=== PATIENT | male | born 2000 | race African-American/Black ===

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

== ENCOUNTER 2018-04-12 18:21 | Emergency (ER) | payer OTHER ==
[2018-04-12 20:47] LABS: INFLUENZA A AMPLIFICATION NEGATIVE (NEGATIVE); INFLUENZA B AMPLIFICATION NEGATIVE (NEGATIVE)
[2018-04-12] MEDS: IBUPROFEN 800 MG TAB PO (21:22)
== END 2018-04-12 21:23 | disposition home or self-care (01) ==
LOC: M ED 18:21
DX: J06.9 Acute upper respiratory infection, unspecified (principal); Z72.0 Tobacco use; Z88.0 Allergy status to penicillin
CPT/HCPCS: 87502

== ENCOUNTER 2018-09-07 05:58 | Emergency (ER) | payer OTHER ==
[~2018-09-07] VITALS: Ht 170.2 cm; Wt 59.0 kg
[~2018-09-07 05:58] MED LIST: BENZ200C70 PO; IBUP-1022 PO; IBUP80TA PO; MUCI600T37 PO; NAPR-885 PO; VENTAER IN
[2018-09-07 06:06] VITALS: BP 136/87
--- NOTE | 2018-09-07 06:38 | ED PDOC ---
Post-Departure Follow-Up THIS PT HAD AN EKG DONE, HE PRESENTED FOR CHEST PAIN. HE WAS NOT SEEN BY A SD OVIDER BEFORE DECIDING TO LEAVE THE DEPARTMENT. REJI NIX PA-C Sep 07, 2018 06:38
--- NOTE | 2018-09-07 18:49 | ECGEPIP ---
Stationary ECG Study [facility] - ED Test Date: 2018-09-07 Pat Name: JACIEL GUPTA II Department: Room: - Gender: M Computer Science Intern: mynor : 2000 Requested By: SAUL Davis Order Number: [id number] Reading MD: Vanesa Ware Measurements Intervals [place] Rate: 63 P: 64 HI: 145 QRS: 52 QRSD: 86 T: 59 QT: 386 QTc: 396 Interpretive Statements SINUS RHYTHM WITH SINUS ARRHYTHMIA NONSPECIFIC T-WAVE ABNORMALITY NO PRIOR FOR COMPARISON Electronically Signed On 09-07-2018 18:48:57 EDT by Vanesa Ware
== END 2018-09-07 06:30 | disposition left against medical advice (07) ==
LOC: M ED 05:58
DX: Z53.29 Procedure and treatment not carried out because of patient's decision for other reasons (principal)

== ENCOUNTER 2021-07-29 02:59 | Emergency (ER) | payer OTHER ==
[~2021-07-29] VITALS: Ht 165.1 cm; Wt 61.0 kg
[2021-07-29 03:47] LABS: HEMATOCRIT 52.9 % (42.0-52.0); MEAN CORPUSCULAR HEMOGLOBIN 30.6 pg (27.0-33.0); PLATELET COUNT, AUTOMATED 331 10^3/uL (150-450); RED BLOOD COUNT 5.88 10^6/uL (4.30-6.10); WHITE BLOOD COUNT 25.8 10^3/uL (4.0-10.0)
[2021-07-29 04:52] LABS: ACETAMINOPHEN LEVEL < 2.0 UG/ML (10.0-30.0); ALBUMIN 5.4 GM/DL (3.2-5.2); ALT/SGPT 17 U/L (12-78); BILIRUBIN,DIRECT 0.3 MG/DL (0.0-0.2); BILIRUBIN,TOTAL 1.2 MG/DL (0.2-1.0); BLOOD UREA NITROGEN 12 MG/DL (7-18); CALCIUM LEVEL 9.4 MG/DL (8.5-10.1); CARBON DIOXIDE LEVEL 23 MEQ/L (21-32); CHLORIDE LEVEL 103 MEQ/L (98-107); CREATININE FOR GFR 1.09 MG/DL (0.70-1.30); ETHYL ALCOHOL (ETHANOL) < 0.003 % (0.000-0.010); GLOMERULAR FILTRATION RATE > 60.0 (>60); GLUCOSE, FASTING 77 MG/DL (70-100); POTASSIUM SERUM 3.9 MEQ/L (3.5-5.1); SALICYLATE LEVEL < 1.7 MG/DL (5.0-30.0); SODIUM LEVEL 137 MEQ/L (136-145); THYROID STIMULATING HORMONE 0.569 uIU/ML (0.358-3.740); TOTAL PROTEIN 8.3 GM/DL (6.4-8.2)
[2021-07-29 05:10] LABS: BASO # 0.1 10^3/uL (0.0-0.2); BASO % 0.4 % (0.0-1.0); EOS % 0.1 % (0.0-3.0); LYMPH % 7.3 % (24.0-44.0); MONO % 6.7 % (2.0-8.0); NEUTROPHILS # 22.7 10^3/uL (1.5-8.5); NEUTROPHILS % 84.8 % (36.0-66.0)
[2021-07-29 05:11] LABS: MONO # 1.8 10^3/uL (0.0-0.8)
[2021-07-29 05:18] LABS: AMPHETAMINES LEVEL URINE NEGATIVE (NEGATIVE); BARBITURATES URINE NEGATIVE (NEGATIVE); BENZODIAZEPINES URINE POSITIVE (NEGATIVE); CANNABINOIDS URINE POSITIVE (NEGATIVE); COCAINE METABOLITE URINE POSITIVE (NEGATIVE); METHADONE URINE NEGATIVE (NEGATIVE); OPIATES URINE NEGATIVE (NEGATIVE); PHENCYCLIDINE URINE NEGATIVE (NEGATIVE)
[2021-07-29 08:59] VITALS: BP 143/69
== END 2021-07-29 11:39 | disposition home or self-care (01) ==
LOC: M ED 02:59
DX: F15.10 Other stimulant abuse, uncomplicated (principal); Z88.0 Allergy status to penicillin; F17.210 Nicotine dependence, cigarettes, uncomplicated

== ENCOUNTER 2021-08-26 15:08 | Emergency (ER) | payer MEDICAID, OTHER, SELFPAY ==
[~2021-08-26] VITALS: Ht 167.6 cm; Wt 63.6 kg
[2021-08-26 15:08] VITALS: BP 117/74
[2021-08-26] MEDS ORDERED: LIDOCAINE VISCOUS 2% SOLN 15ML UDC SSP ONE (15:20)
[2021-08-26] MEDS ORDERED: CLEO150C PO (15:22)
[2021-08-26] MEDS ORDERED: CLEO300C2 PO (15:22)
[2021-08-26] MEDS ORDERED: LIDO2SO PO (15:25)
[2021-08-26] MEDS ORDERED: IBUP-1022 PO (15:40)
[2021-08-26] MEDS ORDERED: ACET500P3 PO (15:40)
== END 2021-08-26 15:46 | disposition home or self-care (01) ==
LOC: M ED 15:08
DX: K04.7 Periapical abscess without sinus (principal); K02.9 Dental caries, unspecified; S02.5XXA Fracture of tooth (traumatic), initial encounter for closed fracture; X58.XXXA Exposure to other specified factors, initial encounter; Y92.89 Other specified places as the place of occurrence of the external cause; Z88.0 Allergy status to penicillin; F17.210 Nicotine dependence, cigarettes, uncomplicated

== ENCOUNTER 2021-09-17 19:35 | Emergency (ER) | payer OTHER, SELFPAY ==
[~2021-09-17] VITALS: Ht 167.6 cm; Wt 57.9 kg
[~2021-09-17 19:35] MED LIST changes: +ACET500P3 PO; +CLEO150C PO; +CLEO300C2 PO; +LIDO2SO PO
[2021-09-17 19:36] VITALS: BP 127/70
[2021-09-17 22:14] LABS: HEMOGLOBIN 15.8 g/dl (13.5-17.5); MEAN CORPUSCULAR HEMOGLOBIN 30.5 pg (27.0-33.0); MEAN CORPUSCULAR HGB CONC 34.3 g/dl (32.0-36.5); MEAN CORPUSCULAR VOLUME 88.8 fl (80.0-96.0); PLATELET COUNT, AUTOMATED 323 10^3/uL (150-450); RED BLOOD COUNT 5.18 10^6/uL (4.30-6.10); WHITE BLOOD COUNT 10.4 10^3/uL (4.0-10.0)
[2021-09-17 22:33] LABS: ATYPICAL LYMPH 7 % (0-5); EOSINOPHILS 1 % (0-3); LYMPHOCYTES 27 % (16-44); MONOCYTES 7 % (0-5); NEUTROPHILS 58 % (28-66); PLATELET ESTIMATE NORMAL (NORMAL)
[2021-09-17] MEDS ORDERED: CLINDAMYCIN 150MG CAPSULE PO ONE (22:55)
[2021-09-17] MEDS ORDERED: AMOX500C PO (23:08)
[2021-09-17] MEDS ORDERED: PROBCAP14 PO (23:08)
[2021-09-18 00:41] LABS: GC DNA AMPLIFICATION NEGATIVE (NEGATIVE)
== END 2021-09-17 23:19 | disposition home or self-care (01) ==
LOC: M ED 19:35
DX: K04.7 Periapical abscess without sinus (principal); Z88.0 Allergy status to penicillin; F17.210 Nicotine dependence, cigarettes, uncomplicated

== ENCOUNTER 2022-06-03 21:54 | Emergency (ER) | payer SELFPAY ==
[~2022-06-03] VITALS: Ht 170.2 cm; Wt 59.1 kg
[~2022-06-03 21:54] MED LIST changes: +AMOX500C PO; +PROBCAP14 PO
[2022-06-03 22:20] VITALS: BP 116/64
== END 2022-06-03 22:15 | disposition left against medical advice (07) ==
LOC: EDBD 21:54 → M ED 21:54
DX: Z53.21 Procedure and treatment not carried out due to patient leaving prior to being seen by health care provider (principal)

== ENCOUNTER 2023-03-09 01:27 | Emergency (ER) | payer MEDICAID, SELFPAY ==
[~2023-03-09] VITALS: Ht 167.6 cm; Wt 71.3 kg
[~2023-03-09 01:27] MED LIST changes: +LIDO15SO2 PO; -LIDO2SO PO
[2023-03-09] MEDS ORDERED: ONDANSETRON 4MG 2ML VIAL IV ONE (01:40)
[2023-03-09] MEDS ORDERED: NS 1,000 ML IV ONE (01:40)
[2023-03-09] MEDS ORDERED: MORPHINE 4 MG/ML 1ML VIAL IV ONE (01:40)
[2023-03-09 02:23] LABS: BASO # 0.1 10^3/uL (0.0-0.2); BASO % 0.7 % (0.0-1.0); EOS # 0.3 10^3/uL (0.0-0.5); HEMATOCRIT 45.8 % (42.0-52.0); HEMOGLOBIN 15.5 g/dl (13.5-17.5); LYMPH % 36.5 % (24.0-44.0); MEAN CORPUSCULAR HEMOGLOBIN 31.1 pg (27.0-33.0); MEAN CORPUSCULAR HGB CONC 33.8 g/dl (32.0-36.5); MEAN CORPUSCULAR VOLUME 91.8 fl (80.0-96.0); MONO # 1.1 10^3/uL (0.0-0.8); MONO % 7.7 % (2.0-8.0); NEUTROPHILS # 7.1 10^3/uL (1.5-8.5); NEUTROPHILS % 52.1 % (36.0-66.0); PLATELET COUNT, AUTOMATED 406 10^3/uL (150-450); RED BLOOD COUNT 4.99 10^6/uL (4.30-6.10); WHITE BLOOD COUNT 13.7 10^3/uL (4.0-10.0)
[2023-03-09 03:24] LABS: BLOOD UREA NITROGEN 5 MG/DL (9-23); CALCIUM LEVEL 8.8 MG/DL (8.5-10.1); CARBON DIOXIDE LEVEL 20 MMOL/L (20-31); CHLORIDE LEVEL 103 MMOL/L (98-107); CREATININE FOR GFR 0.88 MG/DL (0.70-1.30); GLOMERULAR FILTRATION RATE > 60.0 (>60); GLUCOSE, FASTING 146 MG/DL (60-100); MAGNESIUM LEVEL 1.9 MG/DL (1.8-2.4); POTASSIUM SERUM 3.2 MMOL/L (3.5-5.1); SODIUM LEVEL 141 MMOL/L (136-145)
[2023-03-09] MEDS ORDERED: POTASSIUM CHLORIDE 10% LIQ 20MEQ/15ML UDC PO ONE (03:50)
[2023-03-09] MEDS ORDERED: ACETAMINOPHEN *IV* 1,000 MG in IV 1 EA IV ONE (05:35)
[2023-03-09 06:33] VITALS: TEMP 98.2
[2023-03-09] MEDS ORDERED: MORPHINE 2 MG/ML 1ML VIAL IV ONE (06:45)
[2023-03-09 06:49] VITALS: BP 116/56; O2SAT 8
== END 2023-03-09 06:52 | disposition short-term general hospital (02) ==
LOC: M ED 01:27
DX: S02.2XXA Fracture of nasal bones, initial encounter for closed fracture (principal); S02.842A Fracture of lateral orbital wall, left side, initial encounter for closed fracture; H53.2 Diplopia; Y04.8XXA Assault by other bodily force, initial encounter; Z88.0 Allergy status to penicillin; Y92.9 Unspecified place or not applicable
CPT/HCPCS: 70450; 70486; 80048; 83735; 85025; 87635; 96374; 96375; 99285; J0131; J2405